=== PATIENT | male | born 1975 | race Caucasian/White ===

== ENCOUNTER 2017-04-20 20:53 | Emergency (ER) | payer MEDICAID ==
[~2017-04-20] VITALS: Ht 180.3 cm; Wt 108.8 kg
[~2017-04-20 20:53] MED LIST: AMLO5TAB2 PO; CALC0.25 PO; DARB60VI SQ; DOCU-131 PO; ERGO500017 PO; FENT1PAT75 TD; FINA5TAB4 PO; FURO40TA6 PO; FURO80TA3 PO; HYDR-3307 PO; HYDR-3343 PO; INSU100V5 SQ-INSULIN; INSU100V8 SQ; LISI-167 PO; LISI-170 PO; METO50TA82 PO; MONT10TA6 PO; MORP-52 PO; NIFE60TA19 PO; OMEP20CA9 PO; OXYB5TAB33 PO; SEVE800T7 PO; SEVE800T8 PO; SIMV10TA3 PO; SITA100T PO; TAMS-11 PO
[2017-04-20 23:22] LABS: HEMATOCRIT 33.3 % (39.2-51.8); HEMOGLOBIN 11.3 g/dL (13.7-18.0); WHITE BLOOD COUNT 5.9 x10^3/uL (3.4-10)
[2017-04-20 23:31] LABS: BLOOD UREA NITROGEN 33 mg/dL (7-18)
[2017-04-20] MEDS ORDERED: CLINDAMYCIN 300 MG CAPSULE ONE (23:51)
[2017-04-20] MEDS ORDERED: OXYcodone/APAP 10/325MG TABLET ONE (23:51)
[2017-04-21] MEDS ORDERED: CLINDAMYCIN 300 MG CAPSULE PO ONE
[2017-04-21] MEDS ORDERED: OXYcodone/APAP 10/325MG TABLET PO ONE
[2017-04-21 01:12] VITALS: BP 132/81
== END 2017-04-21 01:16 | disposition home or self-care (01) ==
LOC: ED 23:29
DX: L03.116 Cellulitis of left lower limb (principal); I12.0 Hypertensive chronic kidney disease with stage 5 chronic kidney disease or end stage renal disease; N18.6 End stage renal disease; Z99.2 Dependence on renal dialysis
CPT/HCPCS: 36415; 80048; 82040; 85025; 87040; 99285

== ENCOUNTER 2017-04-29 18:26 | Emergency (ER) | payer MEDICAID ==
[~2017-04-29] VITALS: Ht 180.3 cm; Wt 109.7 kg
[2017-04-29 20:00] LABS: BASOPHILS # (AUTO) 0.01 x10^3/uL (0-0.1); BASOPHILS % (AUTO) 0 % (0-1); EOSINOPHILS # (AUTO) 0.06 x10^3/uL (0-0.4); EOSINOPHILS % (AUTO) 2 % (1-7); LYMPHOCYTES % (AUTO) 25 % (22-44); MD NO; MEAN PLATELET VOLUME 9.1 fL (7.4-10.4); MONOCYTES # (AUTO) 0.23 x10^3/uL (0.2-0.8); MONOCYTES % (AUTO) 5 % (2-9); NEUTROPHILS % (AUTO) 68 % (42-75); PLATELET COUNT 246 x10^3/uL (130-400); RED CELL DISTRIBUTION WIDTH 15.3 % (9.4-14.8)
[2017-04-29 20:11] LABS: ANION GAP 7 mmol/L (5-15); CALCIUM 8.3 mg/dL (8.5-10.1); CHLORIDE 97 mmol/L (98-107); CREATININE 5.73 mg/dL (0.7-1.3)
[2017-04-29] MEDS ORDERED: SULFAMETH./TRIMETHOPRIM DS 800MG/160MG TABLET ONE (22:28)
[2017-04-29] MEDS ORDERED: CEPHALEXIN 500 MG CAPSULE ONE (22:28)
[2017-04-29] MEDS ORDERED: SULFAMETH./TRIMETHOPRIM DS 800MG/160MG TABLET PO ONE (22:30)
[2017-04-29] MEDS ORDERED: CEPHALEXIN 500 MG CAPSULE PO ONE (22:30)
[2017-04-29 23:13] VITALS: BP 138/74
== END 2017-04-29 23:20 | disposition home or self-care (01) ==
LOC: ED 23:15
DX: E11.621 Type 2 diabetes mellitus with foot ulcer (principal); I11.9 Hypertensive heart disease without heart failure; E11.9 Type 2 diabetes mellitus without complications; E78.5 Hyperlipidemia, unspecified
CPT/HCPCS: 36415; 80048; 85025; 99285

== ENCOUNTER 2017-09-01 03:39 | Emergency (ER) | payer MEDICAID ==
[~2017-09-01] VITALS: Ht 180.3 cm; Wt 108.6 kg
[2017-09-01 03:41] VITALS: BP 184/91
[2017-09-01 04:47] LABS: BASOPHILS # (AUTO) 0.04 x10^3/uL (0-0.1); BASOPHILS % (AUTO) 1 % (0-1); EOSINOPHILS # (AUTO) 0.17 x10^3/uL (0-0.4); EOSINOPHILS % (AUTO) 2 % (1-7); LYMPHOCYTES # (AUTO) 1.43 x10^3/uL (1-3.4); LYMPHOCYTES % (AUTO) 19 % (22-44); MD NO; MEAN CORPUSCULAR HGB CONC 34.3 g/dL (33.2-36.2); MEAN CORPUSCULAR VOLUME 90.5 fL (81-97); MONOCYTES # (AUTO) 0.38 x10^3/uL (0.2-0.8); MONOCYTES % (AUTO) 5 % (2-9); NEUTROPHILS # (AUTO) 5.47 x10^3/uL (1.8-6.8); NEUTROPHILS % (AUTO) 73 % (42-75); PLATELET COUNT 291 x10^3/uL (130-400); RED BLOOD COUNT 3.66 x10^6/uL (4.38-5.82); RED CELL DISTRIBUTION WIDTH 15.5 % (9.4-14.8)
[2017-09-01 04:54] LABS: ALBUMIN 3.6 g/dL (3.4-5.0); ANION GAP 18 mmol/L (5-15); CALCIUM 6.6 mg/dL (8.5-10.1); CHLORIDE 96 mmol/L (98-107)
[2017-09-01 06:53] LABS: CLOSTRIDIUM DIFFICILE ANTIGEN POSITIVE; CLOSTRIDIUM DIFFICILE TOXIN NEGATIVE (Negative)
[2017-09-01] MEDS ORDERED: BACITRACIN ZINC OINT 500U/GM, 0.9 GM ONE (07:28)
== END 2017-09-01 08:02 | disposition home or self-care (01) ==
LOC: ED 07:38
DX: R19.7 Diarrhea, unspecified (principal); N18.6 End stage renal disease; E11.628 Type 2 diabetes mellitus with other skin complications; E11.22 Type 2 diabetes mellitus with diabetic chronic kidney disease; E11.65 Type 2 diabetes mellitus with hyperglycemia; I12.0 Hypertensive chronic kidney disease with stage 5 chronic kidney disease or end stage renal disease; E78.5 Hyperlipidemia, unspecified; E66.9 Obesity, unspecified; Z89.511 Acquired absence of right leg below knee; Z99.2 Dependence on renal dialysis; Z79.4 Long term (current) use of insulin
CPT/HCPCS: 36415; 80048; 82040; 85025; 87324; 87493; 89055; 99284

== ENCOUNTER 2018-02-15 18:26 | Inpatient (IN) | payer MEDICAID ==
[~2018-02-15] VITALS: Ht 180.3 cm; Wt 110.2 kg
[~2018-02-15 18:26] MED LIST changes: -AMLO5TAB2 PO; +AMLO5TAB7 PO
[2018-02-15 19:13] LABS: BASOPHILS # (AUTO) 0.01 x10^3/uL (0-0.1); BASOPHILS % (AUTO) 0 % (0-1); EOSINOPHILS # (AUTO) 0.13 x10^3/uL (0-0.4); EOSINOPHILS % (AUTO) 2 % (1-7); LYMPHOCYTES % (AUTO) 16 % (22-44); MD NO; MEAN CORPUSCULAR HGB CONC 34.1 g/dL (33.2-36.2); MEAN CORPUSCULAR VOLUME 90.9 fL (81-97); MEAN PLATELET VOLUME 9.6 fL (7.4-10.4); MONOCYTES # (AUTO) 0.36 x10^3/uL (0.2-0.8); MONOCYTES % (AUTO) 6 % (2-9); NEUTROPHILS # (AUTO) 4.38 x10^3/uL (1.8-6.8); NEUTROPHILS % (AUTO) 76 % (42-75); PLATELET COUNT 240 x10^3/uL (130-400); RED BLOOD COUNT 3.39 x10^6/uL (4.38-5.82); RED CELL DISTRIBUTION WIDTH 14.6 % (9.4-14.8)
[2018-02-15 19:22] LABS: ANION GAP 10 mmol/L (5-15); CALCIUM 7.5 mg/dL (8.5-10.1); CHLORIDE 99 mmol/L (98-107); CREATININE 4.88 mg/dL (0.7-1.3)
[2018-02-15] MEDS ORDERED: AMPICILLIN/SULBACTAM 3 GM in SODIUM CHLORIDE 0.9% 100 ML IV ONE (21:30)
[2018-02-15] MEDS ORDERED: SODIUM CHLORIDE FLUSH 10ML SYR IVF ONE (21:30)
[2018-02-15] MEDS ORDERED: DOCUSATE 100 MG CAPSULE PO PRN ×2 (22:30)
[2018-02-15] MEDS ORDERED: PHARMACY MAY ADJ FOR RENAL FX MC PRN (22:30)
[2018-02-15] MEDS ORDERED: ERGOCALCIFEROL 50,000 UNIT CAPSULE PO SCH (22:30)
[2018-02-15] MEDS ORDERED: hydrALAzine 20 MG/ML, 1ML IVPush PRN (22:30)
[2018-02-15] MEDS ORDERED: LISINOPRIL 20 MG TABLET PO SCH (22:30)
[2018-02-15] MEDS ORDERED: SIMVASTATIN 10 MG TABLET PO SCH (22:30)
[2018-02-15] MEDS ORDERED: FENTANYL 25 MCG PATCH TD SCH (23:00)
[2018-02-15] MEDS: HYDROcodone/APAP 10/325 MG TABLET PO SCH (23:17)
[2018-02-15 23:52] VITALS: BP 155/82
[2018-02-16 01:59] VITALS: BP 136/75
[2018-02-16] MEDS ORDERED: AMPICILLIN/SULBACTAM 3 GM in SODIUM CHLORIDE 0.9% 100 ML IV SCH (05:30)
[2018-02-16 05:38] LABS: BASOPHILS # (AUTO) 0.02 x10^3/uL (0-0.1); BASOPHILS % (AUTO) 0 % (0-1); EOSINOPHILS # (AUTO) 0.21 x10^3/uL (0-0.4); EOSINOPHILS % (AUTO) 4 % (1-7); LYMPHOCYTES # (AUTO) 1.48 x10^3/uL (1-3.4); LYMPHOCYTES % (AUTO) 27 % (22-44); MD NO; MEAN CORPUSCULAR HEMOGLOBIN 30.4 pg (27.5-34.5); MEAN CORPUSCULAR HGB CONC 33.2 g/dL (33.2-36.2); MEAN CORPUSCULAR VOLUME 91.3 fL (81-97); MONOCYTES % (AUTO) 7 % (2-9); NEUTROPHILS # (AUTO) 3.45 x10^3/uL (1.8-6.8); NEUTROPHILS % (AUTO) 62 % (42-75); PLATELET COUNT 196 x10^3/uL (130-400); RED BLOOD COUNT 3.03 x10^6/uL (4.38-5.82); RED CELL DISTRIBUTION WIDTH 14.4 % (9.4-14.8)
[2018-02-16 05:52] LABS: CHLORIDE 101 mmol/L (98-107)
[2018-02-16] MEDS: HYDROcodone/APAP 10/325 MG TABLET PO SCH ×3 (05:53→17:31)
[2018-02-16 05:58] LABS: ANION GAP 10 mmol/L (5-15); CALCIUM 6.9 mg/dL (8.5-10.1); CREATININE 5.45 mg/dL (0.7-1.3)
[2018-02-16] MEDS ORDERED: OMEPRAZOLE 20 MG CAPSULE.DR PO SCH (07:30)
[2018-02-16 07:32] VITALS: BP 132/78
[2018-02-16] MEDS ORDERED: OXYBUTYNIN CHLORIDE 5 MG TABLET PO SCH (09:00)
[2018-02-16] MEDS ORDERED: METOPROLOL TARTRATE 50 MG TABLET PO SCH (09:00)
[2018-02-16] MEDS ORDERED: TAMSULOSIN 0.4 MG CAP.ER.24H PO SCH (09:00)
[2018-02-16] MEDS ORDERED: FUROSEMIDE 40 MG TABLET PO SCH (09:00)
[2018-02-16] MEDS ORDERED: MONTELUKAST 10 MG TABLET PO SCH (09:00)
[2018-02-16] MEDS ORDERED: NIFEDIPINE 60 MG PO SCH (09:00)
[2018-02-16] MEDS: CALCITRIOL 0.25 MCG CAPSULE PO SCH (09:00)
[2018-02-16] MEDS ORDERED: AMLODIPINE 10 MG TAB PO SCH (09:00)
[2018-02-16] MEDS ORDERED: FINASTERIDE 5 MG TABLET PO SCH (09:00)
[2018-02-16] MEDS: LISINOPRIL 20 MG TABLET PO SCH (10:13)
[2018-02-16] MEDS: INSULIN LISPRO 100 UNITS/ML, PEN SQ-INSULIN SCH ×3 (11:48→21:45)
[2018-02-16] MEDS: HEPARIN 5,000 UNITS/ML, 1ML SQ SCH ×2 (11:49→21:55)
[2018-02-16] MEDS: SEVELAMER CARBONATE 800MG TAB PO SCH ×2 (11:49→16:22)
[2018-02-16] MEDS: INSULIN GLARGINE 100 UNITS/ML, PEN SQ-INSULIN SCH (11:49)
[2018-02-16 13:58] VITALS: BP 146/87
[2018-02-16] MEDS: DIPHENHYDRAMINE 25 MG CAPSULE PO PRN (14:07)
[2018-02-16] MEDS ORDERED: PHARMACY MAY ADJ FOR RENAL FX MC PRN (14:30)
[2018-02-16 16:15] LABS: HCT (SEDRATE) 27.7 % (39.2-51.8)
[2018-02-16] MEDS: LACTOBACILLUS CHEW TABLET PO SCH ×2 (16:21→21:55)
[2018-02-16 20:26] VITALS: BP 132/81
[2018-02-16] MEDS: METOPROLOL TARTRATE 50 MG TABLET PO SCH (21:54)
[2018-02-16] MEDS: CEFTAROLINE 200 MG in SODIUM CHLORIDE 0.9% 100 ML IV SCH (21:55)
[2018-02-16] MEDS: FUROSEMIDE 80 MG TABLET PO SCH (21:55)
[2018-02-17] MEDS: HYDROcodone/APAP 10/325 MG TABLET PO SCH ×4 (00:09→17:05)
[2018-02-17 02:36] VITALS: BP 137/80
[2018-02-17 05:25] LABS: CHLORIDE 98 mmol/L (98-107)
[2018-02-17 05:31] LABS: BASOPHILS # (AUTO) 0.03 x10^3/uL (0-0.1); BASOPHILS % (AUTO) 0 % (0-1); EOSINOPHILS # (AUTO) 0.32 x10^3/uL (0-0.4); EOSINOPHILS % (AUTO) 4 % (1-7); LYMPHOCYTES # (AUTO) 1.81 x10^3/uL (1-3.4); LYMPHOCYTES % (AUTO) 22 % (22-44); MD NO; MEAN CORPUSCULAR HEMOGLOBIN 31.3 pg (27.5-34.5); MEAN CORPUSCULAR VOLUME 91.9 fL (81-97); MEAN PLATELET VOLUME 9.5 fL (7.4-10.4); MONOCYTES # (AUTO) 0.58 x10^3/uL (0.2-0.8); MONOCYTES % (AUTO) 7 % (2-9); NEUTROPHILS # (AUTO) 5.46 x10^3/uL (1.8-6.8); NEUTROPHILS % (AUTO) 67 % (42-75); PLATELET COUNT 225 x10^3/uL (130-400); RED BLOOD COUNT 3.21 x10^6/uL (4.38-5.82)
[2018-02-17 05:42] LABS: % IRON SATURATION 26 % (20-55); ALANINE AMINOTRANSFERASE 25 U/L (12-78); ALBUMIN 3.1 g/dL (3.4-5.0); ALKALINE PHOSPHATASE 106 U/L (45-117); ANION GAP 11 mmol/L (5-15); BILIRUBIN,TOTAL 0.5 mg/dL (0.2-1.0); CALCIUM 7.6 mg/dL (8.5-10.1); CREATININE 4.83 mg/dL (0.7-1.3); IRON LEVEL 56 mcg/dL (65-175); TOTAL IRON BINDING CAPACITY 213 mcg/dL (250-450); TOTAL PROTEIN 7.9 g/dL (6.4-8.2)
[2018-02-17] MEDS: HEPARIN 5,000 UNITS/ML, 1ML SQ SCH ×3 (05:47→20:37)
[2018-02-17] MEDS: LACTOBACILLUS CHEW TABLET PO SCH ×2 (05:47→09:12)
[2018-02-17] MEDS: INSULIN LISPRO 100 UNITS/ML, PEN SQ-INSULIN SCH ×4 (07:00→20:36)
[2018-02-17 07:50] VITALS: BP 145/84
[2018-02-17] MEDS: SEVELAMER CARBONATE 800MG TAB PO SCH ×3 (08:00→17:00)
[2018-02-17] MEDS: CALCITRIOL 0.25 MCG CAPSULE PO SCH (09:12)
[2018-02-17] MEDS: LISINOPRIL 20 MG TABLET PO SCH (09:12)
[2018-02-17] MEDS: FUROSEMIDE 80 MG TABLET PO SCH ×2 (09:12→20:37)
[2018-02-17] MEDS: METOPROLOL TARTRATE 50 MG TABLET PO SCH ×2 (09:12→20:37)
[2018-02-17] MEDS: CEFTAROLINE 200 MG in SODIUM CHLORIDE 0.9% 100 ML IV SCH (09:13)
[2018-02-17] MEDS: INSULIN GLARGINE 100 UNITS/ML, PEN SQ-INSULIN SCH (09:13)
[2018-02-17] MEDS ORDERED: ERGOCALCIFEROL 50,000 UNIT CAPSULE PO SCH (10:30)
[2018-02-17] MEDS: DIPHENHYDRAMINE 25 MG CAPSULE PO PRN (17:23)
[2018-02-17 20:21] VITALS: BP 122/64
[2018-02-18] MEDS: DIPHENHYDRAMINE 25 MG CAPSULE PO PRN ×2 (00:26→16:45)
[2018-02-18] MEDS: HYDROcodone/APAP 10/325 MG TABLET PO SCH ×3 (00:26→12:47)
[2018-02-18 00:32] VITALS: BP 142/85
[2018-02-18 04:35] LABS: BASOPHILS # (AUTO) 0.01 x10^3/uL (0-0.1); BASOPHILS % (AUTO) 0 % (0-1); EOSINOPHILS # (AUTO) 0.33 x10^3/uL (0-0.4); EOSINOPHILS % (AUTO) 4 % (1-7); LYMPHOCYTES # (AUTO) 1.51 x10^3/uL (1-3.4); LYMPHOCYTES % (AUTO) 20 % (22-44); MD NO; MEAN CORPUSCULAR HEMOGLOBIN 30.8 pg (27.5-34.5); MEAN CORPUSCULAR VOLUME 90.4 fL (81-97); MEAN PLATELET VOLUME 9.4 fL (7.4-10.4); MONOCYTES # (AUTO) 0.39 x10^3/uL (0.2-0.8); MONOCYTES % (AUTO) 5 % (2-9); NEUTROPHILS # (AUTO) 5.35 x10^3/uL (1.8-6.8); NEUTROPHILS % (AUTO) 71 % (42-75); PLATELET COUNT 204 x10^3/uL (130-400); RED CELL DISTRIBUTION WIDTH 14.7 % (9.4-14.8)
[2018-02-18 04:57] LABS: ALBUMIN 3.1 g/dL (3.4-5.0); ANION GAP 12 mmol/L (5-15); CALCIUM 7.1 mg/dL (8.5-10.1); CHLORIDE 91 mmol/L (98-107); CREATININE 4.82 mg/dL (0.7-1.3)
[2018-02-18] MEDS: HEPARIN 5,000 UNITS/ML, 1ML SQ SCH ×2 (05:51→12:47)
[2018-02-18] MEDS: INSULIN LISPRO 100 UNITS/ML, PEN SQ-INSULIN SCH ×3 (07:00→16:00)
[2018-02-18 07:59] VITALS: BP 138/84
[2018-02-18] MEDS: SEVELAMER CARBONATE 800MG TAB PO SCH ×2 (08:00→12:00)
[2018-02-18] MEDS ORDERED: CALCITRIOL 0.5 MCG CAPSULE PO SCH (09:00)
[2018-02-18] MEDS: FUROSEMIDE 80 MG TABLET PO SCH (09:07)
[2018-02-18] MEDS: LISINOPRIL 20 MG TABLET PO SCH (09:08)
[2018-02-18] MEDS: INSULIN GLARGINE 100 UNITS/ML, PEN SQ-INSULIN SCH (09:09)
[2018-02-18] MEDS: METOPROLOL TARTRATE 50 MG TABLET PO SCH (09:09)
[2018-02-18 13:00] VITALS: BP 138/84
[2018-02-18] MEDS ORDERED: INSU100I13 SQ-INSULIN (15:18)
[2018-02-18] MEDS ORDERED: ERGO500017 PO (15:18)
[2018-02-18] MEDS ORDERED: SEVE800T8 PO (15:18)
[2018-02-18] MEDS ORDERED: CALC0.5C9 PO (15:18)
[2018-02-18] MEDS ORDERED: FURO80TA3 PO (15:18)
== END 2018-02-18 17:43 | disposition home or self-care (01) | DRG 604 ==
LOC: ED 20:33 → EDIP 21:31 → 3NE 22:25 → 4WST 02-16 12:17
PROVIDERS: ADMIT Hospitalist; ATTEND Hospitalist
PROC: 5A1D70Z Performance of Urinary Filtration, Intermittent, Less than 6 Hours Per Day (ICD-10-PCS; principal; 2018-02-16)
PROC: 5A1D70Z Performance of Urinary Filtration, Intermittent, Less than 6 Hours Per Day (ICD-10-PCS; 2018-02-17)
PROC: 5A1D70Z Performance of Urinary Filtration, Intermittent, Less than 6 Hours Per Day (ICD-10-PCS; 2018-02-18)
DX: S61.412A Laceration without foreign body of left hand, initial encounter (principal); N18.6 End stage renal disease; E46 Unspecified protein-calorie malnutrition; I13.11 Hypertensive heart and chronic kidney disease without heart failure, with stage 5 chronic kidney disease, or end stage renal disease; E11.69 Type 2 diabetes mellitus with other specified complication; E78.5 Hyperlipidemia, unspecified; G89.29 Other chronic pain; E11.51 Type 2 diabetes mellitus with diabetic peripheral angiopathy without gangrene; E11.40 Type 2 diabetes mellitus with diabetic neuropathy, unspecified; E11.21 Type 2 diabetes mellitus with diabetic nephropathy; D63.8 Anemia in other chronic diseases classified elsewhere; X58.XXXA Exposure to other specified factors, initial encounter; E11.22 Type 2 diabetes mellitus with diabetic chronic kidney disease; N25.0 Renal osteodystrophy; Z99.2 Dependence on renal dialysis; Z89.412 Acquired absence of left great toe; Z86.14 Personal history of Methicillin resistant Staphylococcus aureus infection; Z83.3 Family history of diabetes mellitus; Z89.511 Acquired absence of right leg below knee; Z88.8 Allergy status to other drugs, medicaments and biological substances; Y93.89 Activity, other specified; Y92.89 Other specified places as the place of occurrence of the external cause; Y99.8 Other external cause status; Z68.33 Body mass index [BMI] 33.0-33.9, adult
CPT/HCPCS: 36415; 80048; 80053; 80069; 82306; 82728; 82962; 83540; 83550; 83735; 83970; 84100; 84145; 84550; 85025; 85651; 86140; 86704; 86706; 87040; 87340; 96374; 99285; G0378; J0295; J0712; J1644; J1815; Q0163

== ENCOUNTER 2018-05-21 20:29 | Emergency (ER) | payer MEDICAID ==
[~2018-05-21] VITALS: Ht 180.3 cm; Wt 113.2 kg
[~2018-05-21 20:29] MED LIST changes: +AMLO-150 PO; -AMLO5TAB7 PO; +CALC0.5C9 PO; +INSU100I13 SQ-INSULIN
--- NOTE | 2018-05-21 20:50 | NUR ---
pt to ed because hd nurse stated he had "cellulitis" of left foot. hx r bka. left foot appears edematous but no heat or redness present. pt conencted to monitors. htn, all other vss. md to bedside for assessment. orders received. call light within reach. no needs at this time.
--- NOTE | 2018-05-21 20:57 | NUR ---
pt to us.
[2018-05-21 21:12] LABS: BASOPHILS # (AUTO) 0.02 x10^3/uL (0-0.1); BASOPHILS % (AUTO) 0 % (0-1); EOSINOPHILS # (AUTO) 0.18 x10^3/uL (0-0.4); EOSINOPHILS % (AUTO) 4 % (1-7); HCT (SEDRATE) 26.6 % (39.2-51.8); LYMPHOCYTES # (AUTO) 0.53 x10^3/uL (1-3.4); LYMPHOCYTES % (AUTO) 10 % (22-44); MD NO; MEAN CORPUSCULAR HEMOGLOBIN 30.6 pg (27.5-34.5); MEAN CORPUSCULAR HGB CONC 33.5 g/dL (33.2-36.2); MEAN CORPUSCULAR VOLUME 91.6 fL (81-97); MONOCYTES # (AUTO) 0.35 x10^3/uL (0.2-0.8); MONOCYTES % (AUTO) 7 % (2-9); NEUTROPHILS # (AUTO) 3.98 x10^3/uL (1.8-6.8); NEUTROPHILS % (AUTO) 79 % (42-75); PLATELET COUNT 177 x10^3/uL (130-400); RED CELL DISTRIBUTION WIDTH 15.1 % (9.4-14.8)
[2018-05-21 21:23] LABS: ANION GAP 8 mmol/L (5-15); CALCIUM 7.6 mg/dL (8.5-10.1); CHLORIDE 103 mmol/L (98-107); CREATININE 4.47 mg/dL (0.7-1.3)
[2018-05-21 21:33] VITALS: BP 168/92
--- NOTE | 2018-05-21 21:35 | NUR ---
pt resting in bed with eyes closed. pt remains htn and states headache, md to be notified. no other needs at this time. call light within reach. awaiting lab results at this time.
[2018-05-21] MEDS ORDERED: ACETAMINOPHEN 325 MG TABLET ONE (21:39)
--- NOTE | 2018-05-21 21:41 | NUR ---
PT MEDICATED PER MAR FOR [facility].
[2018-05-21] MEDS ORDERED: ACETAMINOPHEN 325 MG TABLET PO ONE (22:00)
== END 2018-05-21 22:35 | disposition home or self-care (01) ==
LOC: ED 21:25
DX: R60.0 Localized edema (principal); M79.662 Pain in left lower leg; E11.22 Type 2 diabetes mellitus with diabetic chronic kidney disease; I12.0 Hypertensive chronic kidney disease with stage 5 chronic kidney disease or end stage renal disease; N18.6 End stage renal disease; Z99.2 Dependence on renal dialysis; E78.5 Hyperlipidemia, unspecified; E11.21 Type 2 diabetes mellitus with diabetic nephropathy; E11.40 Type 2 diabetes mellitus with diabetic neuropathy, unspecified; Z89.511 Acquired absence of right leg below knee; Z88.1 Allergy status to other antibiotic agents
CPT/HCPCS: 36415; 80048; 82040; 83605; 84145; 85025; 85651; 99284

== ENCOUNTER 2018-10-27 20:53 | Emergency (ER) | payer MEDICAID ==
[~2018-10-27] VITALS: Ht 180.3 cm; Wt 104.7 kg
[2018-10-27 20:57] VITALS: BP 170/93
--- NOTE | 2018-10-27 21:49 | NUR ---
TO ROOM FROM LOBBY.
[2018-10-27] MEDS ORDERED: LIDOCAINE-MPF 1%, 2ML ONE (21:59)
[2018-10-27] MEDS ORDERED: LIDOCAINE-MPF 1%, 2ML INFIL ONE (22:00)
[2018-10-27] MEDS ORDERED: L.E.T SOLUTION TP ONE ×2 (22:00→22:02)
--- NOTE | 2018-10-27 22:12 | NUR ---
LET PLACED PER ERP ORDER. LIDOCAINE GIVEN TO PA. REPORT TO PRINCE YOUNG, TRANSFER OF CARE AT THIS TIME.
--- NOTE | 2018-10-27 22:15 | NUR ---
REPORT FROM HANNAH COX. PT SITTING UP IN [facility] NOTED. I&D SET UP AT BEDSIDE. FS OBTAINED.
--- NOTE | 2018-10-27 23:19 | NUR ---
DC EDUCATION PROVIDED, PT DEMONSTRATES UNDERSTANDING. PT AMBULATED STEADILY TO DC WITH RN.
== END 2018-10-27 23:21 | disposition home or self-care (01) ==
LOC: ED 22:05
DX: L02.01 Cutaneous abscess of face (principal); E11.9 Type 2 diabetes mellitus without complications; I10 Essential (primary) hypertension; Z89.519 Acquired absence of unspecified leg below knee
CPT/HCPCS: 10060; 99283; J3490